=== PATIENT | female | born 1970 | race Caucasian/White ===

== ENCOUNTER 2016-11-16 13:04 | Emergency (ER) | payer SELFPAY ==
[~2016-11-16] VITALS: Ht 167.6 cm; Wt 122.5 kg
[2016-11-16 16:28] VITALS: BP 138/90
== END 2016-11-16 17:27 | disposition home or self-care (01) ==
LOC: ER 13:07
DX: I10 Essential (primary) hypertension (principal); E11.9 Type 2 diabetes mellitus without complications; Z88.1 Allergy status to other antibiotic agents; Z88.0 Allergy status to penicillin; Z88.6 Allergy status to analgesic agent; Z88.8 Allergy status to other drugs, medicaments and biological substances; Z91.018 Allergy to other foods

== ENCOUNTER 2016-12-02 19:12 | Emergency (ER) | payer SELFPAY ==
[~2016-12-02] VITALS: Ht 167.6 cm; Wt 122.1 kg
[2016-12-02 21:25] LABS: Urine RBC None Seen /hpf (0 - 4)
[2016-12-02 21:38] LABS: Urine Bilirubin Negative (Negative); Urine Blood Negative /uL (Negative); Urine Color Yellow (Yellow); Urine Glucose Normal (Normal); Urine Ketone Negative (Negative); Urine Nitrite Negative (Negative); Urine Squamous Epithelial Cell FEW /hpf (<5); Urine pH 6.5 (5.0-8.0)
[2016-12-03 02:27] VITALS: BP 128/95
[2016-12-03] MEDS ORDERED: HYDROcodone-ACET 5/325MG TAB PO ONE (03:00)
== END 2016-12-03 03:22 | disposition home or self-care (01) ==
LOC: ER 19:19
DX: R51 Headache (principal); R53.1 Weakness; G43.909 Migraine, unspecified, not intractable, without status migrainosus; I10 Essential (primary) hypertension; E11.9 Type 2 diabetes mellitus without complications
CPT/HCPCS: 81001; 81025; 82962